=== PATIENT | female | born 1955 | race Caucasian/White ===

== ENCOUNTER 2018-10-24 10:10 | Emergency (ER) ==
[2018-10-24] MEDS ORDERED: DUONEB NEB STA ×2 (10:33→13:31)
[2018-10-24 10:38] VITALS: BMI 34.3
--- NOTE | 2018-10-24 11:43 | DI ---
EXAM: Single view of the chest HISTORY: Shortness of breath. COMPARISON: None FINDINGS: Cardiomediastinal silhouette is upper limit of normal. There is patchy hazy ground-glass i n the lungs bilaterally. There is no effusion or pneumothorax. There is fusion hardware in the cerv ical spine. The osseous structures are unremarkable. IMPRESSION: Hazy ground-glass throughout both lungs may represent pulmonary edema versus atypical infection.
--- NOTE | 2018-10-24 12:09 | CT ---
EXAM: CTA CHEST (PE PROTOCOL) HISTORY: Shortness of breath TECHNIQUE: CTA chest with intravenous contrast. Multiplanar images were provided with 3-D reconstru ctions. 100 mL Omnipaque. COMPARISON: None FINDINGS: No pulmonary arterial filling defects are identified. Normal heart size. There is no pericardial ef fusion. Mild atherosclerotic disease. Moderate bilateral infiltrates are seen diffusely although greater in the central lung zones. No ple ural fluid. No pneumothorax. The bones reveal stabilization hardware at the cervical level and degenerative changes throughout. T he bones appear demineralized. There is a hiatal hernia. Prominent fatty liver. IMPRESSION: 1. No pulmonary arterial thromboembolism. 2. Moderate bilateral infiltrates consistent with either pulmonary edema or pneumonia. Correlate cl inically. 3. Hiatal hernia. 4. Prominent fatty liver.
[2018-10-24] MEDS ORDERED: SOLU-MEDROL 125 MG IVP STA (12:33)
--- NOTE | 2018-10-24 13:25 | ED.PDOC ---
General ED Provider: Dr. VALENTINO DON Chief Complaint: Shortness of Air Stated Complaint: 63 yrs olf female with THE PAST MEDICAL HISTORY OF COPD WITH 3 DAYS FLU LIKE SYMPTOMS .HER ARRIVAL ABG WAS 7.4/36/49/86%. Time Seen by Physician: 10:13 Mode of Arrival: Walk-In Information Source: Patient Exam Limitations: No limitations Primary Care Provider: MIGNON GREEN Nursing and Triage Documentation Reviewed and Agree: Yes Does patient meet sepsis criteria?: No System Inflammatory Response Syndrome: Not Applicable Sepsis Protocol: For patient's 13 years and over: Temp is 96.8 and below OR 101 and greater Pulse >90 BPM Resp >20/minute Acutely Altered Mental Status Are patient's symptoms suggestive of a new infection, such as: -Pneumonia -Skin, Soft Tissue -Endocarditis -UTI -Bone, Joint Infection -Implantable Device -Acute Abdominal Infection -Wound Infection -Meningitis -Blood Stream Catheter Infection -Unknown Respiratory Complaint Exam - Respiratory Complaint/Exam Onset/Duration: 3 DAYS Symptoms Are: Still present Timing: Constant Initial Severity: Moderate Current Severity: Moderate Location: Chest Character: Reports: Non-productive cough, Dry cough Aggravating: Reports: URI Alleviating: Reports: Bronchodilators, Upright position Associated Signs and Symptoms: Reports: Rapid breathing, Fever, Chills, Wheezing , URI, Nasal congestion, Decreased oral intake. Denies: Dyspnea, Chest pain, Pleuritic chest pain, Hemoptysis, Dizziness, Calf pain, Calf swelling, Edema, Hoarseness, Sinus discomfort, Vomiting, Sore throat, Weight loss, Increased thirst, Increased appetite, Increased urination Related History: Reports: Similar episode (C.O.P.D ) History of Healthcare-Acquired Pneumonia: No Related Surgical History: Reports: None Pulmonary Embolism Risk Factors: Bedrest, Smoking Pseudomonas Risk Factors: Reports: Chronic Lung Disease Tuberculosis Risk Factors: Reports: Chronic Resp. Faliure Status Asthmaticus Risk Factors: Reports: None Home Oxygen Use: No (NO PEAK FLOW TAKEN AT HOME ) Recent Stress Test: No Recent Echo/LV Function: No Current Antibiotic Use: No Current Asthma Medication Use: No Respiratory Distress: Mild Inadequate Respiratory Effort: No Dysphagia Present: No Stridor Present: No JVD Present: No Accessory Muscle Use: No Retractions: Not Present Diminished Breath Sounds: Yes Prolonged Respiration: Expiratory phase Sinus Tenderness: None, Frontal Grunting Respirations: No Kussmaul Respirations: No Differential Diagnoses: Asthma, Pulmonary Edema, COPD Exacerbation, Pneumonia, Bronchitis, Influenza Quality Indicators For Pneumonia: Empiric Antibiotic Rx (ZOSCYN 4.5 GRAM X 1 ) Non-Traumatic Chest Pain Syncope: EKG Performed Review of Systems - Review Of Systems Constitutional: Reports: Chills, Fever, Malaise Eyes: Reports: No symptoms Ears, Nose, Mouth, Throat: Reports: No symptoms Respiratory: Reports: Cough, Wheezing Cardiac: Reports: No symptoms GI: Reports: No symptoms : Reports: No symptoms Musculoskeletal: Reports: No symptoms Skin: Reports: No symptoms Neurological: Reports: No symptoms Endocrine: Reports: No symptoms Hematologic/Lymphatic: Reports: No symptoms All Other Systems: Reviewed and Negative Past Medical History - Past Medical History Previously Healthy: Yes Endocrine: Reports: Dyslipidemia Cardiovascular: Reports: Hypertension Respiratory: Reports: COPD Hematological: Reports: None Gastrointestinal: Reports: GERD Genitourinary: Reports: None Neuro/Psych: Reports: Anxiety Musculoskeletal: Reports: None Cancer: Reports: None Last Menstrual Period: na - Surgical History General Surgical History: Reports: None - Family History Family History: Reports: None - Social History Smoking Status: Current some day smoker Hx Substance Use: No Alcohol Screening: None - Immunizations Tetanus Shot up to Date: No Physical Exam - Physical Exam Appearance: Ill-appearing Ill-appearing: Moderate Pain Distress: Mild Eyes: RISHABH, EOMI, Conjunctiva clear ENT: Ears normal, Nose normal, Oropharynx normal Respiratory: Wheezes Cardiovascular: RRR, Pulses normal, No rub, No murmur GI/: Soft, Nontender, No masses, Bowel sounds normal, No Organomegaly Musculoskeletal: Normal strength, ROM intact, No edema, No calf tenderness Skin: Warm, Dry, Normal color Neurological: Sensation intact, Motor intact, Reflexes intact, Cranial nerves intact, Alert, Oriented Psychiatric: Affect appropriate, Mood appropriate Interpretation - Radiology Interpretation Radiology Interpretation By: Radiologist (NO PE) Re-Evaluation - Re-Evaluation Time of Re-Evaluation: 11:00 Status: Improved Vital Signs Stable: Yes Pain Level: 0 Appearance: NAD Lungs: Clear Skin: Warm and Dry Neuro: Alert and Oriented X3 CV: RRR - Re-Evaluation Time of Re-Evaluation: 13:00 Status: Unchanged Vital Signs Stable: Yes Pain Level: 0 Appearance: NAD Skin: Warm and Dry Neuro: Alert and Oriented X3 CV: RRR Critical Care Note - Critical Care Note Total Time (mins): 180 Course - Course Hematology/Chemistry: 10/24/18 10:45 10/24/18 10:45 Orders, Labs, Meds: Lab Review 10/24/18 10/24/18 10/24/18 10:33 10:45 10:45 WBC 13.10 H RBC 3.93 L Hgb 11.1 L Hct 34.8 L MCV 88.5 MCH 28.2 MCHC 31.9 RDW Coeff of Cody 14.7 Plt Count 241 Immature Gran % (Auto) 0.2 Neut % (Auto) 73.9 Lymph % (Auto) 14.4 [place]on % (Auto) 9.0 Eos % (Auto) 2.1 Baso % (Auto) 0.4 Immature Gran # (Auto) 0.0 Neut # (Auto) 9.7 H Lymph # (Auto) 1.9 Kenton # (Auto) 1.2 Eos # (Auto) 0.3 Baso # (Auto) 0.1 PT 10.8 INR 1.08 APTT 30.3 Puncture Site Rb O2 Saturation 86.0 L ABG pH 7.43 ABG pCO2 36.7 ABG pO2 49.0 L* ABG HCO3 24.6 ABG Total CO2 26 ABG Base Excess 0 Cristian Test FiO2 % 21.0 Sodium Potassium Chloride Carbon Dioxide Anion Gap BUN Creatinine Estimated GFR (MDRD) BUN/Creatinine Ratio Glucose Lactic Acid Calcium Total Bilirubin AST ALT Alkaline Phosphatase Total Creatine Kinase CK-MB (CK-2) CK-MB (CK-2) % Troponin I Total Protein Albumin Globulin Albumin/Globulin Ratio Procalcitonin Influ A Molecular Assay Influ B Molecular Assay 10/24/18 10/24/18 10/24/18 10:45 10:45 10:45 WBC RBC Hgb Hct MCV MCH MCHC RDW Coeff of [place] Plt Count Immature Gran % (Auto) Neut % (Auto) Lymph % (Auto) [place] % (Auto) Eos % (Auto) Baso % (Auto) Immature Gran # (Auto) Neut # (Auto) Lymph # (Auto) [place] # (Auto) Eos # (Auto) Baso # (Auto) PT INR APTT Puncture Site O2 Saturation ABG pH ABG pCO2 ABG pO2 ABG HCO3 ABG Total CO2 ABG Base Excess Cristian Test FiO2 % Sodium 141.8 Potassium 3.18 L Chloride 108.2 H Carbon Dioxide 26.8 Anion Gap 9.98 BUN 12.0 Creatinine 0.51 L Estimated GFR (MDRD) 122.00 BUN/Creatinine Ratio 23.52 Glucose 105.1 Lactic Acid 1.47 Calcium 8.47 Total Bilirubin 0.41 AST 28.8 ALT 18.4 Alkaline Phosphatase 84.4 Total Creatine Kinase 164.5 H CK-MB (CK-2) 1.330 CK-MB (CK-2) % 0.8000 Troponin I < 0.012 Total Protein 6.81 Albumin 3.55 Globulin 3.26 Albumin/Globulin Ratio 1.08 Procalcitonin < 0.05 Influ A Molecular Assay Influ B Molecular Assay 10/24/18 10/24/18 11:15 12:31 WBC RBC Hgb Hct MCV MCH MCHC RDW Coeff of Cody Plt Count Immature Gran % (Auto) Neut % (Auto) Lymph % (Auto) [place] % (Auto) Eos % (Auto) Baso % (Auto) Immature Gran # (Auto) Neut # (Auto) Lymph # (Auto) [place]on # (Auto) Eos # (Auto) Baso # (Auto) PT INR APTT Puncture Site Rr O2 Saturation 85.0 L ABG pH 7.515 H* ABG pCO2 34.2 L ABG pO2 45.0 L* ABG HCO3 27.6 H ABG Total CO2 29 H ABG Base Excess 5 H Cristian Test + FiO2 % 21.0 Sodium Potassium Chloride Carbon Dioxide Anion Gap BUN Creatinine Estimated GFR (MDRD) BUN/Creatinine Ratio Glucose Lactic Acid Calcium Total Bilirubin AST ALT Alkaline Phosphatase Total Creatine Kinase CK-MB (CK-2) CK-MB (CK-2) % Troponin I Total Protein Albumin Globulin Albumin/Globulin Ratio Procalcitonin Influ A Molecular Assay Negative by naat Influ B Molecular Assay Negative by naat Orders Category Date Time Status ABG DRAW REQUEST Stat CARDIO 10/24/18 10:33 Completed ABG DRAW REQUEST Stat CARDIO 10/24/18 12:30 Ordered EKG-(ED ONLY) Stat CARDIO 10/24/18 10:32 Completed NEBULIZER TREATMENT Stat CARDIO 10/24/18 10:33 Completed NPO REMINDER: IMAGING ONCE CARE 10/24/18 11:27 Active ED IV/MEDIPORT/POWERPORT .ONCE EMERGENCY 10/24/18 10:32 Active ABG Stat LAB 10/24/18 10:33 Completed ABG Stat LAB 10/24/18 12:31 Ordered BLOOD CULTURE Stat LAB 10/24/18 11:00 Received CBC W/ AUTO DIFF Stat LAB 10/24/18 10:45 Completed COMPREHENSIVE METABOLIC PANEL Stat LAB 10/24/18 10:45 Completed CREATINE KINASE Stat LAB 10/24/18 10:45 Completed FLU A/B MOLECULAR Stat LAB 10/24/18 11:15 Completed LACTIC ACID Stat LAB 10/24/18 10:45 Completed MOLECULAR GROUP A STREP Stat LAB 10/24/18 11:15 Completed PARTIAL THROMBOPLASTIN TIME Stat LAB 10/24/18 10:45 Completed PROCALCITONIN Stat LAB 10/24/18 10:45 Completed PT WITH INR Stat LAB 10/24/18 10:45 Completed TROPONIN I Stat LAB 10/24/18 10:45 Completed 0.9 % Sodium Chloride [Saline Flush] MEDS 10/24/18 10:32 Active 1 syr IVF PRN PRN Ipratropium/Albuterol Neb [Duoneb] MEDS 10/24/18 10:33 Discontinued 1 vial NEB ONCE STA Methylprednisolone Sod Succ/Pf [Solu-Medrol 125 mg] MEDS 10/24/18 12:33 Stat 40 mg IVP ONCE STA CHEST, 1V AP ONLY Stat RADS 10/24/18 10:[address] CHEST PE PROTOCOL Stat RADS 10/24/18 11:27 Completed Medications Generic Name Dose Route Start Last Admin Trade Name Freq PRN Reason Stop Dose Admin Sodium Chloride 1 syr 10/24/18 10:32 Saline Flush IVF PRN PRN To flush IV Discontinued Medications Generic Name Dose Route Start Last Admin Trade Name Freq PRN Reason Stop Dose Admin Albuterol/Ipratropium 1 vial 10/24/18 10:33 10/24/18 10:38 Duoneb NEB 10/24/18 10:34 1 vial ONCE STA Administration Methylprednisolone Sodium Succinate 40 mg 10/24/18 12:33 10/24/18 12:58 Solu-Medrol 125 Mg IVP 10/24/18 12:34 40 mg ONCE STA Administration Vital Signs: Temp Pulse Resp BP Pulse Ox 10/24/18 10:12 100.1 F H 74 24 134/75 89 L Departure - Departure Time of Disposition: 14:00 Disposition: TSF SHORT-TRM HOSP Discharge Problem: COPD exacerbation Instructions: COPD (Chronic Obstructive Pulmonary Disease) (ED) Condition: Good Pt referred to PMD for follow-up: Yes IPMP verified?: No Additional Instructions: Please call your Family Physician as soon as possible to schedule a follow-up appointment. Allergies/Adverse Reactions: Allergies acetaminophen [From Tylox] Adverse Reaction (Verified 10/24/18 11:02) butorphanol [From Stadol] Adverse Reaction (Verified 10/24/18 11:02) ciprofloxacin [From Cipro] Adverse Reaction (Verified 10/24/18 11:02) ketorolac [From Toradol] Adverse Reaction (Verified 10/24/18 11:02) morphine Adverse Reaction (Verified 10/24/18 11:02) oxycodone [From Tylox] Adverse Reaction (Verified 10/24/18 11:02) sumatriptan [From Imitrex] Adverse Reaction (Verified 10/24/18 11:02) Home Medications: Ambulatory Orders Albuterol Sulfate 0.083% Neb [Albuterol 0.083% Neb] 1 vial NEB RTQ4H 10/24/18 Budesonide/Formoterol Fumarate [Symbicort 80-4.5 Mcg Inhaler] 2 puff IH BID 05/06 Buspirone HCl 7.5 mg PO TID 10/24/18 Citalopram Hydrobromide [Citalopram HBr] 40 mg PO DAILY 10/24/18 Fluticasone Propionate [Flonase] 2 puff IH DAILY 10/24/18 Gabapentin 600 mg PO TID 10/24/18 Hydrocodone Bit/Acetaminophen [[place] 10-325] 1 tab PO PRN PRN 10/24/18 Lisinopril [Zestril] 10 mg PO DAILY 10/24/18 Meclizine HCl 25 mg PO TID 10/24/18 Meloxicam 15 mg PO DAILY 10/24/18 Metoprolol Tartrate 25 mg PO Q12HR 10/24/18 Niacin 500 mg PO BEDTIME 10/24/18 Nitroglycerin 0.4 mg SL PRN PRN 10/24/18 Pantoprazole Sodium [Protonix] 40 mg PO DAILY 10/24/18 Polyethylene Glycol [Polyox Wsr-301] 1 gm PO DAILY 10/24/18 Pravastatin Sodium 80 mg PO DAILY 10/24/18 Quetiapine Fumarate [Quetiapine Fumarate ER] 150 mg PO BEDTIME 10/24/18 Sucralfate [Carafate] 1 gm PO TID 10/24/18 Disposition Discussed With: Patient
[2018-10-24] MEDS ORDERED: ZOSYN 4.5 GM 4.5 GM in SODIUM CHLORIDE 100 ML IV STA (13:26)
[2018-10-24 13:55] VITALS: TEMP 101.2
[2018-10-24 14:04] VITALS: BP 142/79
== END 2018-10-24 15:11 | disposition short-term general hospital (02) ==
LOC: ED 10:10
DX: J44.1 Chronic obstructive pulmonary disease with (acute) exacerbation (principal); R06.02 Shortness of breath; E78.5 Hyperlipidemia, unspecified; I10 Essential (primary) hypertension; F17.210 Nicotine dependence, cigarettes, uncomplicated; Z79.899 Other long term (current) drug therapy
CPT/HCPCS: 36415; 80053; 82550; 82553; 82803; 83605; 84145; 84484; 85025; 85610; 85730; 87040; 87502; 87651; 93005; 93010; 94640; 94660; 96365; 96375; 99285

== ENCOUNTER 2018-11-09 05:35 | Emergency (ER) ==
[2018-11-09 05:44] VITALS: BP 108/56; TEMP 100.1
[2018-11-09] MEDS ORDERED: XOPENEX 1.25 MG NEB STA (06:10)
--- NOTE | 2018-11-09 06:19 | ED.PDOC ---
General <VALENTINO DON - Last Filed: 11/09/18 09:27> Stated Complaint: recently was discharged from [facility] with bilat pneumonia-- now with cough, fever and left sided chest paIn Time Seen by Physician: 05:40 Mode of Arrival: Walk-In Information Source: Patient Exam Limitations: No limitations Nursing and Triage Documentation Reviewed and Agree: Yes Does patient meet sepsis criteria?: Yes If yes, has appropriate treatment been initiated?: Yes System Inflammatory Response Syndrome: Not Applicable <SVETA CANALES - Last Filed: 11/14/18 01:34> ED Provider: Dr. SVETA CANALES Chief Complaint: Shortness of Air Primary Care Provider: MIGNON GREEN Sepsis Protocol: For patient's 13 years and over: Temp is 96.8 and below OR 101 and greater Pulse >90 BPM Resp >20/minute Acutely Altered Mental Status Are patient's symptoms suggestive of a new infection, such as: -Pneumonia -Skin, Soft Tissue -Endocarditis -UTI -Bone, Joint Infection -Implantable Device -Acute Abdominal Infection -Wound Infection -Meningitis -Blood Stream Catheter Infection -Unknown Respiratory Complaint Exam - Respiratory Complaint/Exam Onset/Duration: 2 days Symptoms Are: Still present Timing: Constant Initial Severity: Mild Current Severity: Mild Location: Chest Character: Reports: Productive cough Associated Signs and Symptoms: Reports: Dyspnea, Fever, Chills, Pleuritic chest pain. Denies: Rapid breathing History of Healthcare-Acquired Pneumonia: Admit w/in last 30 days Home Oxygen Use: Yes Recent Stress Test: No Recent Echo/LV Function: No Current Antibiotic Use: Yes Current Asthma Medication Use: No Respiratory Distress: Mild Inadequate Respiratory Effort: No Dysphagia Present: No Stridor Present: No JVD Present: No Accessory Muscle Use: No Retractions: Not Present Diminished Breath Sounds: Yes Sinus Tenderness: None Grunting Respirations: No Kussmaul Respirations: No Differential Diagnoses: Pneumonia Non-Traumatic Chest Pain Syncope: EKG Performed <SVETA CANALES - Last Filed: 11/14/18 01:34> Review of Systems - Review Of Systems Constitutional: Reports: Chills, Fever Eyes: Reports: No symptoms Ears, Nose, Mouth, Throat: Reports: No symptoms Respiratory: Reports: Cough, Short of air Cardiac: Reports: No symptoms GI: Reports: No symptoms : Reports: No symptoms Musculoskeletal: Reports: No symptoms Skin: Reports: No symptoms Neurological: Reports: No symptoms Endocrine: Reports: No symptoms Hematologic/Lymphatic: Reports: No symptoms All Other Systems: Reviewed and Negative <SVETA CANALES Last Filed: 11/14/18 01:34> Past Medical History - Past Medical History Previously Healthy: Yes Endocrine: Reports: Dyslipidemia Cardiovascular: Reports: Hypertension Respiratory: Reports: COPD Hematological: Reports: None Gastrointestinal: Reports: GERD Genitourinary: Reports: None Neuro/Psych: Reports: Anxiety Musculoskeletal: Reports: None Cancer: Reports: None Last Menstrual Period: HAS HAD A HYSTERECTOMY - Surgical History General Surgical History: Reports: None - Family History Family History: Reports: None - Social History Smoking Status: Former smoker Hx Substance Use: No Alcohol Screening: None - Immunizations Tetanus Shot up to Date: Yes <SVETA CANALES Last Filed: 11/14/18 01:34> Physical Exam - Physical Exam Appearance: Well-appearing, No pain distress, Well-nourished Eyes: RISHABH ENT: Ears normal, Nose normal, Oropharynx normal Neck: Supple Respiratory: Airway patent, Breath sounds clear, Breath sounds equal, Respirations nonlabored Cardiovascular: RRR, Pulses normal, No rub, No murmur GI/: Soft, Nontender, No masses, Bowel sounds normal, No Organomegaly Musculoskeletal: Normal strength Skin: Warm, Dry, Normal color Neurological: Sensation intact, Motor intact, Reflexes intact, Cranial nerves intact, Alert, Oriented Psychiatric: Affect appropriate, Mood appropriate <SVETA CANALES Last Filed: 11/14/18 01:34> Re-Evaluation - Re-Evaluation Time of Re-Evaluation: 07:00 Status: Improved Vital Signs Stable: Yes Appearance: NAD Lungs: Clear Skin: Warm and Dry Neuro: Alert and Oriented X3 CV: RRR - Re-Evaluation Time of Re-Evaluation: 09:28 Status: Improved Vital Signs Stable: Yes Pain Level: 0 Appearance: NAD Skin: Warm and Dry Neuro: Alert and Oriented X3 <VALENTINO DON - Last Filed: 11/09/18 09:27> Physician Notification - Case Discussed Physician Notified: harmony Time of Notification: 09:29 (transfer ) <VALENTINO DON - Last Filed: 11/09/18 09:27> - Case Discussed Physician Notified: [email or web address] Time of Notification: 07:00 <SVETA CANALES - Last Filed: 11/14/18 01:34> Critical Care Note - Critical Care Note Total Time (mins): 0 <VALENTINO DON - Last Filed: 11/09/18 09:27> Course - Course Hematology/Chemistry: 11/09/18 06:00 11/09/18 06:00 <VALENTINO ODN - Last Filed: 11/09/18 09:27> - Course Hematology/Chemistry: 11/09/18 06:00 11/09/18 06:00 <SVETA CANALES - Last Filed: 11/14/18 01:34> - Course Orders, Labs, Meds: Lab Review 11/09/18 11/09/18 11/09/18 05:51 05:55 06:00 WBC 19.17 H RBC 3.42 L Hgb 9.8 L Hct 30.5 L MCV 89.2 MCH 28.7 MCHC 32.1 RDW Coeff of Cody 15.9 H Plt Count 163 Immature Gran % (Auto) 0.9 Neut % (Auto) 85.5 Lymph % (Auto) 8.1 L Navarro % (Auto) 4.0 Eos % (Auto) 1.3 Baso % (Auto) 0.2 Immature Gran # (Auto) 0.2 Neut # (Auto) 16.4 H Lymph # (Auto) 1.6 Navarro # (Auto) 0.8 Eos # (Auto) 0.3 Baso # (Auto) 0.0 Puncture Site Rb O2 Saturation 97.0 ABG pH 7.456 H ABG pCO2 34.4 L ABG pO2 88.0 ABG HCO3 24.3 ABG Total CO2 25 ABG Base Excess 0 Cristian Test + O2 Delivery Device Bnc Oxygen Liter Flow 2.00 FiO2 % 28.0 Sodium Potassium Chloride Carbon Dioxide Anion Gap BUN Creatinine Estimated GFR (MDRD) BUN/Creatinine Ratio Glucose Lactic Acid Calcium Total Bilirubin AST ALT Alkaline Phosphatase Total Creatine Kinase Troponin I Total Protein Albumin Globulin Albumin/Globulin Ratio Amylase Lipase Procalcitonin Urine Color Urine Clarity Urine pH Ur Specific Orange Urine Protein Urine Glucose (UA) Urine Ketones Urine Blood Urine Nitrite Urine Bilirubin Urine Urobilinogen Ur Leukocyte Esterase Urine Microscopic RBC Urine Microscopic WBC Ur Squamous Epith Cells Ur Renal Epithelial Cell Urine Bacteria Influ A Molecular Assay Negative by naat Influ B Molecular Assay Negative by naat 11/09/18 11/09/18 11/09/18 06:00 06:00 06:00 WBC RBC Hgb Hct MCV MCH MCHC RDW Coeff of Cody Plt Count Immature Gran % (Auto) Neut % (Auto) Lymph % (Auto) Navarro % (Auto) Eos % (Auto) Baso % (Auto) Immature Gran # (Auto) Neut # (Auto) Lymph # (Auto) Navarro # (Auto) Eos # (Auto) Baso # (Auto) Puncture Site O2 Saturation ABG pH ABG pCO2 ABG pO2 ABG HCO3 ABG Total CO2 ABG Base Excess Cristian Test O2 Delivery Device Oxygen Liter Flow FiO2 % Sodium 137.0 Potassium 3.16 L Chloride 104.3 Carbon Dioxide 25.1 Anion Gap 10.76 BUN 15.6 Creatinine 0.49 L Estimated GFR (MDRD) 128.00 BUN/Creatinine Ratio 31.83 Glucose 232.9 H Lactic Acid 2.49 H Calcium 7.89 L Total Bilirubin 0.78 AST 24.2 ALT 20.8 Alkaline Phosphatase 66.7 Total Creatine Kinase Troponin I Total Protein 5.76 L Albumin 2.96 L Globulin 2.80 Albumin/Globulin Ratio 1.05 Amylase 37.5 Lipase 32.1 Procalcitonin 16.28 Urine Color Urine Clarity Urine pH Ur Specific Orange Urine Protein Urine Glucose (UA) Urine Ketones Urine Blood Urine Nitrite Urine Bilirubin Urine Urobilinogen Ur Leukocyte Esterase Urine Microscopic RBC Urine Microscopic WBC Ur Squamous Epith Cells Ur Renal Epithelial Cell Urine Bacteria Influ A Molecular Assay Influ B Molecular Assay 11/09/18 11/09/18 06:00 07:12 WBC RBC Hgb Hct MCV MCH MCHC RDW Coeff of Cody Plt Count Immature Gran % (Auto) Neut % (Auto) Lymph % (Auto) Navarro % (Auto) Eos % (Auto) Baso % (Auto) Immature Gran # (Auto) Neut # (Auto) Lymph # (Auto) Navarro # (Auto) Eos # (Auto) Baso # (Auto) Puncture Site O2 Saturation ABG pH ABG pCO2 ABG pO2 ABG HCO3 ABG Total CO2 ABG Base Excess Cristian Test O2 Delivery Device Oxygen Liter Flow FiO2 % Sodium Potassium Chloride Carbon Dioxide Anion Gap BUN Creatinine Estimated GFR (MDRD) BUN/Creatinine Ratio Glucose Lactic Acid Calcium Total Bilirubin AST ALT Alkaline Phosphatase Total Creatine Kinase 30.5 Troponin I < 0.012 Total Protein Albumin Globulin Albumin/Globulin Ratio Amylase Lipase Procalcitonin Urine Color Dark Urine Clarity Clear Urine pH 7.0 Ur Specific Orange 1.010 Urine Protein Trace Urine Glucose (UA) Trace Urine Ketones Trace Urine Blood Negative Urine Nitrite Negative Urine Bilirubin Negative Urine Urobilinogen 2.0 Ur Leukocyte Esterase Trace Urine Microscopic RBC 2-5 Urine Microscopic WBC 5-10 Ur Squamous Epith Cells 10-20 Ur Renal Epithelial Cell 0-2 Urine Bacteria Trace Influ A Molecular Assay Influ B Molecular Assay Orders Category Date Time Status ABG DRAW REQUEST Stat CARDIO 11/09/18 05:52 Completed EKG-(ED ONLY) Stat CARDIO 11/09/18 05:52 Completed NEBULIZER TREATMENT Stat CARDIO 11/09/18 06:11 Completed NPO REMINDER: IMAGING ONCE CARE 11/09/18 06:27 Completed TRANSFER TO OUTSIDE FACILITY .TO [facility] 11/09/18 09:29 Active ([place], [place]) WRITE TRANSFER/SBAR NOTE ONCE CARE 11/09/18 09:29 Active DISCHARGE ASSESSMENT ONCE DISCHARGE 11/09/18 09:29 Active WRITE DISCHARGE NOTE ONCE DISCHARGE 11/09/18 09:29 Active ED [employer]ER APPLIED .ONCE EMERGENCY 11/09/18 05:52 Active ED IV/MEDIPORT/POWERPORT .ONCE EMERGENCY 11/09/18 05:52 Active IV [ED IV/MEDIPORT/POWERPORT] .ONCE EMERGENCY 11/09/18 06:02 Active ABG Stat LAB 11/09/18 05:51 Completed AMYLASE Stat LAB 11/09/18 06:00 Completed BLOOD CULTURE (ED ONLY) Stat LAB 11/09/18 06:00 Results CBC W/ AUTO DIFF Stat LAB 11/09/18 06:00 Completed COMPREHENSIVE METABOLIC PANEL Stat LAB 11/09/18 06:00 Completed CREATINE KINASE Stat LAB 11/09/18 06:00 Completed FLU A/B MOLECULAR Stat LAB 11/09/18 05:55 Completed LACTIC ACID Stat LAB 11/09/18 06:00 Completed LIPASE Stat LAB 11/09/18 06:00 Completed MOLECULAR GROUP A STREP Stat LAB 11/09/18 05:55 Completed PROCALCITONIN Stat LAB 11/09/18 06:00 Completed TROPONIN I Stat LAB 11/09/18 06:00 Completed URINALYSIS C & S IF INDICATED Stat LAB 11/09/18 07:12 Completed URINE CULTURE Stat LAB 11/09/18 07:25 Completed 0.9 % Sodium Chloride [Saline Flush] MEDS 11/09/18 05:51 Discontinued 1 syr IVF PRN PRN 0.9 % Sodium Chloride [Saline Flush] MEDS 11/09/18 06:02 Discontinued 1 syr IVF PRN PRN Levalbuterol HCl [Xopenex 1.25 mg] MEDS 11/09/18 06:10 Discontinued 1 vial NEB ONCE STA Piperacillin Sodium/Tazobactam [Zosyn 4.5 gm] 4.5 gm MEDS 11/09/18 08:57 Discontinued 0.9 % Sodium Chloride [Sodium Chloride] [address] ABDOMEN/PELVIS WO CONTRAST Stat RADS 11/09/18 06:[address] CHEST PE PROTOCOL Stat RADS 11/09/18 06:26 Completed Medications Discontinued Medications Generic Name Dose Route Start Last Admin Trade Name Freq PRN Reason Stop Dose Admin Piperacillin Sod/Tazobactam 100 mls @ 100 mls/hr 11/09/18 08:57 11/09/18 09: 22 Sod 4.5 gm/ Sodium Chloride IV 11/09/18 09:56 100 mls/hr ONCE STA Administration Levalbuterol HCl 1 vial 11/09/18 06:10 11/09/18 06:27 Xopenex 1.25 Mg NEB 11/09/18 06:11 1 vial ONCE STA Administration Sodium Chloride 1 syr 11/09/18 05:51 Saline Flush IVF PRN PRN To flush IV Sodium Chloride 1 syr 11/09/18 06:02 Saline Flush IVF PRN PRN To flush IV Vital Signs: Temp Pulse Resp BP Pulse Ox 11/09/18 05:35 100.1 F H 85 36 H 108/56 L 86 L Departure - Departure Time of Disposition: 09:28 Pt referred to PMD for follow-up: Yes IPMP verified?: No <VALENTINO DON - Last Filed: 11/09/18 09:27> <SVETA CANALES - Last Filed: 11/14/18 01:34> - Departure Disposition: TSF [facility]ORT-TRM HOSP Discharge Problem: Pneumonia Qualifiers: Pneumonia type: due to unspecified organism Laterality: unspecified laterality Lung location: unspecified part of lung Qualified Code(s): J18.9 - Pneumonia, unspecified organism Condition: Good Allergies/Adverse Reactions: Allergies acetaminophen [From Tylox] Adverse Reaction (Verified 11/09/18 05:44) Rash butorphanol [From Stadol] Adverse Reaction (Verified 11/09/18 05:44) Rash ciprofloxacin [From Cipro] Adverse Reaction (Verified 11/09/18 05:44) Rash ketorolac [From Toradol] Adverse Reaction (Verified 11/09/18 05:44) Rash morphine Adverse Reaction (Verified 11/09/18 05:44) Rash oxycodone [From Tylox] Adverse Reaction (Verified 11/09/18 05:44) Rash sumatriptan [From Imitrex] Adverse Reaction (Verified 11/09/18 05:44) Rash Home Medications: Ambulatory Orders Albuterol Sulfate 0.083% Neb [Albuterol 0.083% Neb] 1 vial NEB RTQ4H 10/24/18 Budesonide/Formoterol Fumarate [Symbicort 80-4.5 Mcg Inhaler] 2 puff IH BID 05/06 Buspirone HCl 7.5 mg PO BID 10/24/18 Citalopram Hydrobromide [Citalopram HBr] 40 mg PO DAILY 10/24/18 Gabapentin 600 mg PO TID 10/24/18 Hydrocodone Bit/Acetaminophen [[place] 10-325] 1 tab PO TID 10/24/18 Meclizine HCl 25 mg PO TID 10/24/18 Meloxicam 15 mg PO DAILY 10/24/18 Niacin 500 mg PO BEDTIME 10/24/18 Nitroglycerin 0.4 mg SL PRN PRN 10/24/18 Pantoprazole Sodium [Protonix] 40 mg PO DAILY 10/24/18 Pravastatin Sodium 80 mg PO DAILY 10/24/18 Quetiapine Fumarate [Quetiapine Fumarate ER] 150 mg PO BEDTIME 10/24/18 Sucralfate [Carafate] 1 gm PO TID 10/24/18
[2018-11-09 06:36] VITALS: BMI 34.4
--- NOTE | 2018-11-09 08:14 | CT ---
EXAM: CT abdomen pelvis without contrast HISTORY: Left upper quadrant pain COMPARISON: 10/11/2007 TECHNIQUE: CT abdomen pelvis performed without intravenous contrast. Coronal and sagittal reformatt ed images obtained. FINDINGS: Bibasilar consolidation, left greater than right. No free air. No acute abnormalities of the bones. Left hip arthroplasty. Posterior spinal fusion hardware. Liver diffusely decreased and attenuation. Liver is enlarged. Patient status post cholecystectomy. Pancreas unremarkable. Sple en unremarkable. Adrenals unremarkable. No hydronephrosis or nephrolithiasis. No calculi visualize d in normal course of the ureters. Bladder partially obscured secondary to streak artifact from hip arthroplasty. Aorta normal in caliber. Mild to moderate atherosclerosis. No lymphadenopathy or asc ites identified. Small to moderate hiatal hernia. No dilated loops small bowel. Appendix not visua lized. Colonic diverticulosis. IMPRESSION: 1. No acute abnormality identified in the abdomen or pelvis. 2. Left greater than right bibasilar consolidation, most consistent with pneumonia. Please refer to separate report CT chest. 3. Colonic diverticulosis. 4. Hepatic steatosis. Hepatomegaly. 5. Small moderate hiatal hernia 6. Atherosclerosis.
--- NOTE | 2018-11-09 08:44 | CT ---
EXAM: CT angiography chest HISTORY: Left-sided chest pain, recent hospitalization COMPARISON: 10/24/2018 TECHNIQUE: CT angiography chest performed with intravenous contrast. Coronal and sagittal reformatt ed images obtained. FINDINGS: Thyroid and thoracic inlet appear normal. Heart mildly enlarged. Aorta normal in caliber . Mild atherosclerosis. No aortic dissection. Small to moderate hiatal hernia.. A few borderline enlarged mediastinal lymph nodes measure up to 1.0 cm. Calcified lymph nodes, consistent with old gr anulomatous disease. No acute abnormalities of the bones. Degenerative change in the spine. Cervic al spinal fusion hardware. Central airway patent. Extensive bilateral consolidation and ground-glas s infiltrates throughout both lungs, left greater than right. No pleural effusion. No pneumothorax. 6 mm perifissural nodule right lung image 43. No filling defects identified in the common arteries to the segmental level to suggest a pulmonary embolism. Portions of the subsegmental pulmonary arter ies poorly evaluated due to areas of artifact. IMPRESSION: 1. No evidence for pulmonary embolism to the segmental level. 2. Extensive bilateral consolidation and ground-glass infiltrates, left greater than right, progress ed from 10/24/2018. This may represent pneumonia and/or edema. At least a component of pneumonia is likely given the asymmetric nature. 3. Cardiomegaly. 5. 6 mm pulmonary nodule right lung. Recommend CT chest follow-up in 6 months 5. Borderline enlarged mediastinal lymph nodes, nonspecific. 6. Small to moderate hiatal hernia.
[2018-11-09] MEDS ORDERED: ROCEPHIN 1 GM in SODIUM CHLORIDE 50 ML IV STA (08:54)
[2018-11-09] MEDS ORDERED: ZOSYN 4.5 GM 4.5 GM in SODIUM CHLORIDE 100 ML IV STA (08:57)
== END 2018-11-09 10:16 | disposition short-term general hospital (02) ==
LOC: ED 05:35
DX: J18.9 Pneumonia, unspecified organism (principal); R06.02 Shortness of breath; E78.5 Hyperlipidemia, unspecified; I10 Essential (primary) hypertension; J44.9 Chronic obstructive pulmonary disease, unspecified; K21.9 Gastro-esophageal reflux disease without esophagitis; Z79.899 Other long term (current) drug therapy; R53.1 Weakness; R51 Headache; R07.9 Chest pain, unspecified; R50.9 Fever, unspecified
CPT/HCPCS: 36415; 80053; 81001; 82150; 82550; 82803; 83605; 83690; 84145; 84484; 85025; 87040; 87086; 87502; 87651; 93005; 93010; 94640; 96365; 99285

== ENCOUNTER 2019-03-22 | Emergency (ER) | END 2019-03-22 17:31 | disposition home or self-care (01) | CPT/HCPCS: 36415; 80053; 85025; 93005; 93010; 99282 ==